=== PATIENT | male | born 1955 | race Caucasian/White ===

== ENCOUNTER → 2018-12-27 | Outpatient (CLI) | payer OTHER | LOC: CAT 10:25 | DX: Z13.6 Encounter for screening for cardiovascular disorders (principal); E78.00 Pure hypercholesterolemia, unspecified; I25.10 Atherosclerotic heart disease of native coronary artery without angina pectoris ==

== ENCOUNTER → 2020-03-05 | Outpatient (CLI) | payer OTHER ==
--- NOTE | 2020-03-05 11:24 | EXE ---
[facility] [place] [address] STRESS ECHOCARDIOGRAM Name: CHACHO CUELLAR Room #: REG [facility]#: [id number] Admission: 03/05/20 Attend Phys: Job Garzon MD Discharge: Date of : 57 Report #: [id number] THIS REPORT FOR: cc: Job Garzon MD, Neal A. MD Lammoglia, Francisco J. MD ~ THIS REPORT FOR: //name// APPROVED REPORT Study performed: 03/05/2020 10:24:24 Exam: Stress Echocardiogram Indication: Short of breath, cough, fatigue Patient Location: Out-Patient Stress Nurse: Sarah Cornell RN Status: routine Ht: 5 ft 9 in HR: 57 bpm BP: 118/88 mmHg Rhythm: NSR Medical History Allergies: No known drug allergies Cardiac Risk Factors: Hyperlipidemia Procedure The patient underwent an Exercise Stress Test using the Gabriel Protocol. Blood pressure, heart rate, and EKG were monitored. An Echocardiogram was performed by avionics technician in four stages in quad fashion. At peak stress, four selected images were obtained and placed side by side with resting images for comparison. Stress Test Details Stress Test: Exercise stress testing was performed using a Gabriel protocol. HR Resting HR: 57 bpm Max Heart Rate (APMHR): 157 bpm Max HR Achieved: 150 bpm Target HR (85% APMHR): 133 bpm % of APMHR: 95 Recovery HR: 81 bpm HR response to stress: Normal HR response to stress BP [facility] [address] [place] [address] STRESS ECHOCARDIOGRAM Name: CHACHO CUELLAR Room #: [facility]#: [id number] Admission: 03/05/20 Attend Phys: Job Garzon, Discharge: Date of : 57 Report #: [id number] Resting BP: 118/88 mmHg Max BP: 150/70 mmHg Recovery BP: 136/76 mmHg BP response to stress: Normal blood pressure response to stress. ECG Clinical Reason for Termination: Maximal effort Exercise duration: 13 min 49 sec Highest Stage Achieved: Stage 5: 5.0 mph at 18% grade. Exercise capacity: 17.50 METs Stress ECG Conclusion 1. Subjectively negative for ischemia 2. Electrocardiographically negative for ischemia 3. Satisfactory functional capacity 4. No exercise-induced arrhythmias Pre-Stress Echo The resting Echocardiogram showed normal left ventricular contractility with an estimated Ejection Fraction of about 55-60%. The resting echocardiogram demonstrated normal wall motion in all wall segments. Post-Stress Echo The stress Echocardiogram showed normal left ventricular contractility with an estimated Ejection Fraction of about 65-70%. Compared to rest, there were no stress-induced wall motion abnormalities. Conclusion Clinical Response: Non-ischemic Exercise Capacity: Satisfactory Stress ECG Response: Non-ischemic Stress Echo Images: Non-ischemic 1. Low risk study for presence of significant coronary artery disease Other Information Study Quality: Fair Technically limited study due to lung interference. <Conclusion> [facility] [address] [place] [address] STRESS ECHOCARDIOGRAM Name: CUELLARCHACHO Room #: REG CL [facility].#: [id number] Admission: 03/05/20 Attend Phys: Job Garzon, Discharge: Date of : 57 Report #: [id number] 1. Low risk study for presence of significant coronary artery disease <ELECTRONICALLY SIGNED> By: Bhaskar Clay MD 03/05/20 [id number] Bhaskar Clay MD /INF
== END ==
LOC: CV 09:58
PROVIDERS: ATTEND Family Medicine
DX: R05 Cough (principal); R06.02 Shortness of breath; R53.83 Other fatigue